=== PATIENT | female | born 1970 | race Caucasian/White ===

== ENCOUNTER 2021-01-31 08:41 | Day surgery (SDC) | payer BC ==
[~2021-01-31] VITALS: Ht 175.3 cm; Wt 116.8 kg
[2021-01-31] MEDS ORDERED: SYNTHROID0.05 MG/TA PO (09:00)
[2021-01-31 09:04] VITALS: BP 140/85; PULSE 82; TEMP 97.7
[2021-01-31 11:15] VITALS: BP 127/77; PULSE 58; TEMP 97.7
--- NOTE | 2021-01-31 11:15 | NUR ---
Pt returned to [facility] 8 via cart. Ambulated to recliner in [place]. A&O. VSS-see flowsheet. Given warm blanket and legs reclined. Given water and jello per request. Denies needs or complaints. Call light in reach.
[2021-01-31 11:30] VITALS: BP 126/77; PULSE 58
[2021-01-31 11:45] VITALS: BP 123/81; PULSE 56
--- NOTE | 2021-01-31 12:12 | NUR ---
Pt returned to [facility] via cart. Ambulated to recliner in [place], given warm blanket. Pt given water and jello per request. VSS-see flowsheet. IV removed, catheter tip intact. Discharge teaching completed, pt verbalized understanding. Pt taken via wheelchair to private vehicle for dc home with spouse driving.
== END 2021-01-31 12:15 | disposition home or self-care (01) ==
LOC: SDCO 08:41
DX: Z12.11 Encounter for screening for malignant neoplasm of colon (principal); E07.9 Disorder of thyroid, unspecified; Z79.890 Hormone replacement therapy; Z85.3 Personal history of malignant neoplasm of breast
CPT/HCPCS: J2704; J7030; J7120